=== PATIENT | female | born 1970 | race Caucasian/White ===

== ENCOUNTER 2021-03-17 10:31 | Outpatient (CLI) | payer BC, SELFPAY ==
--- NOTE | ~2021-03-17 | MM_ITS ---
EXAMINATION: MM screening [facility] BI w judy HISTORY: Screening TECHNIQUE: Craniocaudal and mediolateral oblique 3-D tomosynthesis images were obtained and synthetic 2-D images were generated. CAD analysis was submitted and interpreted. COMPARISON: Comparison to multiple prior studies sequentially, with oldest reviewed study dated 01/2011. BREAST PARENCHYMAL COMPOSITION: There are scattered areas of fibroglandular density. FINDINGS: There is no evidence of suspicious mass, calcification, or architectural distortion to sugg est malignancy in either breast. There has been no suspicious interval change. IMPRESSION: 1. No mammographic evidence of malignancy. 2. Recommend routine screening mammography in one year. BI-RADS Category 1: Negative Reviewed, dictated and finalized at location A.
== END 2021-03-17 10:32 | disposition home or self-care (01) ==
LOC: ANHIMG 10:34
PROVIDERS: PCP Family Medicine; Visit Provider Family Medicine
DX: Z12.31 Encounter for screening mammogram for malignant neoplasm of breast (principal)
CPT/HCPCS: 77063; 77067

== ENCOUNTER 2022-01-16 00:42 | Day surgery (SDC) | payer BC, SELFPAY ==
[2022-01-08 14:03] VITALS: BMI 40.0
[2022-01-16 06:33] VITALS: BP 149/92; PULSE 91; RESP 18; TEMP 36.3; O2SAT 99
[2022-01-16] MEDS: LACTATED RINGERS 1,000 ML 150 ML IV CONT (06:46)
--- NOTE | 2022-01-16 06:56 | P.PNAN_ITS ---
Anes - Eval Final PreProcedure Day of Procedure 01/16/22 06:56 Patient weight: morbidly obese Heart: regular rate and rhythm Lungs: clear to auscultation Airway: Mallampati scale class III and class IV Neurological: alert and oriented Last oral intake: >/= 8 hours ASA classification: III Emergent: no Anesthetic plan: proceed Anesthesia type and monitoring: general GIVS Other findings: tMJ popping of jaw Results Review: All pre-operative results and documents have been reviewed as part of the pre- operative evaluation. Informed Consent: The patient's anesthetic plan and its attendant risks and benefits were discussed with the patient/family/POA. Questions were solicited and answers provided to the satisfaction of the patient/family/POA.
--- NOTE | 2022-01-16 06:59 | WPDANESEPPF ---
Anes - Initial Pre Proc Eval Procedure: Operation Date: 01/16/22 07:30 Proposed Procedures p Screening Colonoscopy - Rodríguez Hines MD Date/Time: 01/16/22 06:59 Surgeon: Rodríguez Hines MD Pre Op Diagnosis: neoplasm screening Patient Data Age: 51 Gender: F Height: 1.5 m Weight: 89.7 kg Last Vital Signs Temp 97.4 F L 01/16/22 06:33 Pulse 91 01/16/22 06:33 Resp 18 01/16/22 06:33 BP 149/92 H 01/16/22 06:33 Pulse Ox 99 01/16/22 06:33 O2 Del Method Room Air 01/16/22 06:33 Allergies Allergy/AdvReac Type Severity Reaction Status Date / Time SOLE Inhibitors Allergy Unknown cough Verified 01/08/22 13:47 erythromycin base Allergy Unknown Skin Verified 01/08/22 13:47 Reaction hydrochlorothiazide Allergy Unknown Unknown Verified 01/08/22 13:47 irbesartan Allergy Unknown Unknown Verified 01/08/22 13:47 lisinopril Allergy Unknown Unknown Verified 01/08/22 13:47 metronidazole Allergy Unknown Skin Verified 01/08/22 13:47 Reaction olmesartan Allergy Unknown Unknown Verified 01/08/22 13:47 Penicillins Allergy Unknown Unknown Verified 01/08/22 13:47 Sulfa (Sulfonamide Allergy Unknown Unknown Verified 01/08/22 13:47 Antibiotics) Home Medications Medication Instructions Recorded Confirmed Type docusate sodium 100 mg capsule 300 mg PO DAILY 07/06/19 01/16/22 History (Stool Softener) fluticasone propionate 50 1 spray intranasal DAILY 07/06/19 01/16/22 History mcg/actuation nasal spray,suspension polyethylene glycol 3350 17 17 gm PO DAILY 07/06/19 01/16/22 History gram/dose oral powder (Miralax) triamcinolone acetonide 0.1 % 1 applic topical BID 07/06/19 01/16/22 History topical cream betamethasone, augmented 0.05 % 1 applic topical BID PRN Dry Skin 10/30/19 01/16/22 History topical ointment (Diprolene (augmented)) metoprolol tartrate 25 mg tablet 25 mg PO DAILY 04/27/20 01/16/22 History montelukast 10 mg tablet 10 mg PO DAILY #90 tabs 07/03/21 01/16/22 Rx spironolactone 50 mg tablet See Rx Instructions .Route 07/24/21 01/16/22 Rx .COMPLEX #180 tabs bupropion HCl 300 mg 24 hr tablet, 300 mg PO QAM #90 tabs 08/21/21 01/16/22 Rx extended release (Wellbutrin XL) indapamide 2.5 mg tablet See Rx Instructions .Route 12/25/21 01/16/22 Rx .COMPLEX #90 tabs Patient hx anesthesia problems: none Family hx anesthesia problems: none Results Review: All pre-operative results and documents have been reviewed as part of the pre-operative evaluation. [facility]LY [facility], [facility] Past Medical History Medical History Arthritis of knee, right History of chicken pox IT band syndrome Family History Family History Father Diabetes mellitus Hypertension Malignant neoplasm of prostate Mother Acute myocardial infarction, Onset Age: 45 Heart disease Lung cancer Sibling DRESS syndrome Other Family history of congenital heart disease Family history of malignant neoplasm Social History Social History (Updated 10/25/21 @ 15:28 by JOSELYN Faria) Smoking packs per day: 0.5 Smoking cigarettes per day: 10.0 Years smoked: 30 Smoking pack-years: 15.00 Smoking status: Current every day smoker Tobacco type: cigarettes Smoking end date: 08/26/14 Alcohol intake: never Substance use: never Substance use type: does not use Living arrangements: with family Spiritual care concerns: No Anes - Eval Final PreProcedure Day of Procedure 01/16/22 06:59 Patient weight: morbidly obese Heart: regular rate and rhythm Lungs: clear to auscultation Airway: Mallampati scale class III and class IV Neurological: alert and oriented Last oral intake: >/= 8 hours ASA classification: III Emergent: no Anesthetic plan: proceed Anesthesia type and monitoring: general GIVS Other findings: tMJ-popping Results Review: Jonathan
--- NOTE | 2022-01-16 07:03 | P.PNAN_ITS ---
Anes - Eval Final PreProcedure Day of Procedure 01/16/22 07:03 Patient weight: morbidly obese Heart: regular rate and rhythm Lungs: clear to auscultation Airway: Mallampati scale class III Last oral intake: 6 hours Emergent: no Anesthetic plan: proceed Anesthesia type and monitoring: general GIVS and standard monitoring Results Review: All pre-operative results and documents have been reviewed as part of the pre- operative evaluation. Informed Consent: The patient's anesthetic plan and its attendant risks and benefits were discussed with the patient/family/POA. Questions were solicited and answers provided to the satisfaction of the patient/family/POA.
--- NOTE | 2022-01-16 07:16 | WPDGICN ---
Assessment and Plan Assessment and plan (1) Colon cancer screening: Code(s): Z12.11 - Encounter for screening for malignant neoplasm of colon Status: Acute Assessment and Plan: Patient presents for neoplasia screening. Appears to be at average risk for colon polyps. Further recommendations will be given after endoscopy. (2) Chronic constipation: Code(s): K59.09 - Other constipation Status: Acute Assessment and Plan: High-fiber diet is strongly encouraged. continuing MiraLax on a daily basis as needed is encouraged as well. (3) Morbid obesity: Code(s): E66.01 - Morbid (severe) obesity due to excess calories Status: Acute Assessment and Plan: Calorie restriction increase exercise strongly encouraged. Plan Colonoscopy to be performed today. GI Consult Note Consult date/time: 01/16/22 07:16 HPI: Sybil Mc is a 51 year old female Presents today for screening colonoscopy. Patient reports that her current weight appetite and bowel movements are normal. She denies abdominal pain. Patient has had no bleeding. Family history is noncontributory. Patient does report a lifelong history of constipation for which she takes MiraLax on a daily basis. Review of Systems Review of Systems: Review of systems is noncontributory. [facility] Past Medical History Medical History Arthritis of knee, right History of chicken pox IT band syndrome Family History Family History Father Diabetes mellitus Hypertension Malignant neoplasm of prostate Mother Acute myocardial infarction, Onset Age: 45 Heart disease Lung cancer Sibling DRESS syndrome Other Family history of congenital heart disease Family history of malignant neoplasm Social History Social History (Updated 10/25/21 @ 15:28 by JOSELYN Faria) Smoking packs per day: 0.5 Smoking cigarettes per day: 10.0 Years smoked: 30 Smoking pack-years: 15.00 Smoking status: Current every day smoker Tobacco type: cigarettes Smoking end date: 08/26/14 Alcohol intake: never Substance use: never Substance use type: does not use Living arrangements: with family Spiritual care concerns: No Meds Home Medications and Allergies Home Medications Medication Instructions Recorded Confirmed Type docusate sodium 100 mg capsule 300 mg PO DAILY 07/06/19 01/16/22 History (Stool Softener) fluticasone propionate 50 1 spray intranasal DAILY 07/06/19 01/16/22 History mcg/actuation nasal spray,suspension polyethylene glycol 3350 17 17 gm PO DAILY 07/06/19 01/16/22 History gram/dose oral powder (Miralax) triamcinolone acetonide 0.1 % 1 applic topical BID 07/06/19 01/16/22 History topical cream betamethasone, augmented 0.05 % 1 applic topical BID PRN Dry Skin 10/30/19 01/16/22 History topical ointment (Diprolene (augmented)) metoprolol tartrate 25 mg tablet 25 mg PO DAILY 04/27/20 01/16/22 History montelukast 10 mg tablet 10 mg PO DAILY #90 tabs 07/03/21 01/16/22 Rx spironolactone 50 mg tablet See Rx Instructions .Route 07/24/21 01/16/22 Rx .COMPLEX #180 tabs bupropion HCl 300 mg 24 hr tablet, 300 mg PO QAM #90 tabs 08/21/21 01/16/22 Rx extended release (Wellbutrin XL) indapamide 2.5 mg tablet See Rx Instructions .Route 12/25/21 01/16/22 Rx .COMPLEX #90 tabs Allergies Allergy/AdvReac Type Severity Reaction Status Date / Time SOLE Inhibitors Allergy Unknown cough Verified 01/08/22 13:47 erythromycin base Allergy Unknown Skin Verified 01/08/22 13:47 Reaction hydrochlorothiazide Allergy Unknown Unknown Verified 01/08/22 13:47 irbesartan Allergy Unknown Unknown Verified 01/08/22 13:47 lisinopril Allergy Unknown Unknown Verified 01/08/22 13:47 metronidazole Allergy Unknown Skin Verified 01/08/22 13:47
[2022-01-16 07:48] VITALS: BP 105/59; PULSE 77; RESP 18; O2SAT 99
[2022-01-16 07:58] VITALS: BP 103/71; PULSE 72; RESP 18; O2SAT 99
[2022-01-16 08:08] VITALS: BP 106/70; PULSE 69; RESP 18; O2SAT 99
== END 2022-01-16 08:22 | disposition home or self-care (01) ==
PROVIDERS: PCP Family Medicine; Visit Provider Internal Medicine Gastroenterology
PROC: 0DJD8ZZ Inspection of Lower Intestinal Tract, Via Natural or Artificial Opening Endoscopic (ICD-10-PCS; CPT 45378; principal; 2022-01-16 07:30)
DX: Z12.11 Encounter for screening for malignant neoplasm of colon (principal); K63.5 Polyp of colon; K59.09 Other constipation; E66.9 Obesity, unspecified; Z68.39 Body mass index [BMI] 39.0-39.9, adult; M19.90 Unspecified osteoarthritis, unspecified site; F17.210 Nicotine dependence, cigarettes, uncomplicated
CPT/HCPCS: 45385; 88305; J2704; J7120

== ENCOUNTER → 2023-01-22 10:35 | Outpatient (CLI) | payer BC, SELFPAY ==
--- NOTE | ~2023-01-22 | CT_ITS ---
CT Scan of the Chest without Contrast: Clinical Indication: Lung cancer screening, personal history of nicotine dependence Technique: Contiguous sections were acquired throughout the chest without intravenous contrast. Dose reduction technique was used on this scan by utilizing automated exposure control and iterative recon struction technique. The dose-length product (DLP) was 243.25 mGy-cm. Findings: There is no evidence of any significant mediastinal, hilar or axillary lymphadenopathy. The mediastin al soft tissues appear normal. There is no evidence of pleural or pericardial effusion. 3 mm right middle lobe pulmonary nodule noted (axial image 65).. Images through the upper abdomen reveal no abnormalities. Impression: Lung RADS 2: Benign appearance. 12 month follow-up screening CT advised. Reviewed, dictated and finalized at location . Impression: Lung RADS 2: Benign appearance. 12 month follow-up screening CT advised.
== END ==
PROVIDERS: PCP Family Medicine; Visit Provider Family Medicine
DX: Z12.2 Encounter for screening for malignant neoplasm of respiratory organs (principal); Z87.891 Personal history of nicotine dependence
CPT/HCPCS: 71271

== ENCOUNTER 2023-03-29 08:57 | Outpatient (CLI) | payer OTHER, SELFPAY ==
--- NOTE | ~2023-03-29 | MM_ITS ---
EXAMINATION: MM screening [facility] BI w judy HISTORY: Screening mammogram TECHNIQUE: Craniocaudal and mediolateral oblique 3-D tomosynthesis images were obtained and synthetic 2-D images were generated. CAD analysis was submitted and interpreted. COMPARISON: 03/17/2021, 01/28/2018 bilateral screening mammogram examinations BREAST PARENCHYMAL COMPOSITION: There are scattered areas of fibroglandular density. FINDINGS: There is no evidence of suspicious mass, calcification, or architectural distortion to sugg est malignancy in either breast. There has been no suspicious interval change. IMPRESSION: 1. No mammographic evidence of malignancy. 2. Recommend routine screening mammography in one year. BI-RADS Category 1: Negative Reviewed, dictated and finalized at location A.
== END 2023-03-29 08:58 | disposition home or self-care (01) ==
LOC: ANHIMG 08:58
PROVIDERS: PCP Family Medicine; Visit Provider Family Medicine
DX: Z12.31 Encounter for screening mammogram for malignant neoplasm of breast (principal)
CPT/HCPCS: 77063; 77067

== ENCOUNTER 2025-01-25 12:21 | Outpatient (CLI) | payer OTHER, SELFPAY ==
--- NOTE | ~2025-01-25 | XR_ITS ---
XR knee RT min 4V 01/25/2025 12:47 Indication: Primary osteoarthritis. Procedure: 3 views right knee Comparison: 09/24/2018 Findings: There is been progression of severe tricompartment osteoarthritis of the right knee. No acu te fracture or traumatic malalignment. Small joint effusion. Impression: 1: Progression of severe tricompartment osteoarthritis of the right. Reviewed, dictated and finalized at location A. Impression: 1: Progression of severe tricompartment osteoarthritis of the right.
== END 2025-01-25 12:22 | disposition home or self-care (01) ==
PROVIDERS: PCP Orthopaedic Surgery; Visit Provider Nurse Practitioner Family
DX: M17.11 Unilateral primary osteoarthritis, right knee (principal)
CPT/HCPCS: 73564

== ENCOUNTER 2025-02-04 09:14 | Outpatient (CLI) | payer OTHER, SELFPAY ==
--- OUTSIDE RECORDS SUMMARY | 2025-02-04 09:54 | XMS_ITS | Referral Summary ---
Author Organization [facility] [place] [address] Address [address] [place] [address] Care Team Providers Care Insurance Claim Auditor Name Role Phone Bk Dumont MD Primary Care Provider [phone] [phone] Allergies Active Allergy Reactions Criticality Noted Date Comments Erythromycin Other (See comments),Stomach upset Low 03/02/2020 Severe stomach cramps Lisinopril Cough Low 03/02/2020 Penicillin G Hives Medium 03/02/2020 Penicillins Hives Medium 1969 Sulfa (Sulfonamide Antibiotics) Rash Medium 03/02/2020 Medications spironolactone (ALDACTONE) 50 mg tablet Take 1 tablet (50 mg total) by mouth 2 (two) times a day 02/01/2020 Active montelukast (SINGULAIR) 10 mg tablet Active polyethylene glycol (MIRALAX) 17 gram/dose powder Active indapamide (LOZOL) 2.5 mg tablet 03/20/2016 Active buPROPion XL (WELLBUTRIN XL) 300 mg 24 hr tablet Active fluticasone propionate (FLONASE) 50 mcg/actuation nasal spray Active docusate sodium (COLACE) 100 mg capsule 08/14/2018 Active tacrolimus (PROTOPIC) 0.1 % ointment 02/22/2022 Active clobetasoL (TEMOVATE) 0.05 % ointment 02/22/2022 Active clotrimazole 1 % cream 11/17/2019 Active meloxicam (MOBIC) 15 mg tablet Take 1 tablet (15 mg total) by mouth daily 08/01/2023 Active metoprolol XL (TOPROL-XL) 50 mg extended release tablet 09/19/2023 Acti ve omeprazole (PriLOSEC) 40 mg capsule Take 1 capsule (40 mg total) by mouth daily 11/25/2023 Active Active Problems Problem Noted Date Diagnosed Date Benign hypertensive heart disease without heart failure 02/04/2023 Mixed hyperlipidemia 02/04/2023 Elevated blood sugar 02/04/2023 Obesity (BMI 30-39.9) 11/21/2020 Family history of premature CAD 11/21/2020 Tobacco use 03/05/2020 Left ventricular hypertrophy 03/05/2020 Sinus tachycardia 03/02/2020 Benign essential HTN 03/02/2020 Immunizations Immunization Administration Dates Next Due Pfizer SARS-CoV-2 Monovalent Vaccination (12+ Yrs) PURPLE 11/13/2020 Social History Tobacco Use Types Packs/Day Years Used Date Smoking Tobacco: Light Smoker Cigarettes 0.3 33.4 Started: 08/26/1991 Smokeless Tobacco: Never Tobacco Cessation:Ready to Q uit: Not Asked; Counseling Given: Not Answered Comments:Lung CT scan came back normal. 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 Gender Identity Female 11/18/2019 9:18 AM CDT Sexual Orientation Not on file Last Filed Vital Signs Vital Sign Reading Time Taken Comments Blood Pressure 120/90 01/03/2024 4:05 PM CDT Pulse 86 01/03/2024 4:05 PM CDT Temperature 36.8 C (98.2 F) 01/03/2024 4:05 PM CDT Respiratory Rate 20 01/03/2024 4:05 PM CDT Oxygen Saturation 98% 01/03/2024 4:05 PM CDT Inhaled Oxygen Concentration - - Weight 92.5 kg (204 lb) 01/03/2024 4:05 PM CDT Height 152.4 cm (5') 01/03/2024 4:05 PM CDT Body Mass Index 39.84 01/03/2024 4:05 PM CDT Plan of Treatment Not on file Insurance [facility] CHOICE PLUS CHOICE PLUS Care Teams Insurance Claim Auditor Relationship Specialty Start Date End Date Bk Dumont MD PCP - General Family Medicine 10/30/19
--- OUTSIDE RECORDS SUMMARY | 2025-02-04 09:54 | XMS_ITS | Clinical Summary ---
Author Organization [facility] [place] [address] Address [address] [place] [address] Care Team Providers Care Director Of Exhibits Name Role Phone Bk Dumont MD Primary Care Provider [phone] [phone] Allergies Active Allergy Reactions Criticality Noted Date [...] SARS-CoV-2 Monovalent Vaccination (12+ Yrs) PURPLE 11/13/2020 Surgical History Surgery Date Site/Laterality Comments RECTOCELE REPAIR BLADDER SURGERY 08/14/2018 Medical History Medical History Date Comments Hypertension GERD (gastroesophageal reflux disease) Arthritis Depression Family History Medical History Relation Name Comments Cancer Father Don Alexandro Diabetes Father Don Alexandro Hypertension Father Don Alexandro Prostate cancer Father Don Alexandro Cancer Father's Brother Flynn Mc Alzheimer's disease Father's Sister Delmis Mcguire Heart attack Maternal Grandfather Arthur Collator Operator Alzheimer's disease Maternal Grandmother Barbie Abrahamcher Arthritis Maternal Grandmother Barbieestrellita AbrahamCollator Operator Miscarriages / Stillbirths Maternal Grandmother Barbie Abrahamcher Allergy (severe) Mother Irlanda Mc COPD Mother Irlanda Pierreer Cancer Mother Irlanda Pierreer Early Mother Irlanda Alexandro Heart attack Mother Irlanda Mc Had [place] Age 49, age 57 of COPD and lung cancer Lung cancer Mother Irlanda Mc Cause of , age 57 Miscarriages / Stillbirths Mother Irlanda Mc Rashes / Skin problems Mother Irlanda Alexandro Heart attack Paternal Grandfather Ben Alexandro Heart disease Paternal Grandfather Ben Alexandro Bleeding Disorder Paternal Grandmother Olimpia Alexandro Heart attack Paternal Grandmother Olimpia Alexandro Rashes / Skin problems Paternal Grandmother Olimpia Gram denisha DRESS Syndrome Sister 1 Severe allerg ic reaction; can be familial. 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 Gender Identity Female 11/18/2019 9:18 AM CDT Sexual Orientation Not on file Obstetrics History Last Filed Vital Signs Vital Sign Reading [...] 01/03/2024 4:05 PM CDT Plan of Treatment Health Maintenance Due Date Last Done Comments Breast Cancer Screening-Mammogram 1969 Cervical Cancer Screening 1969 Colon Cancer Screening-Colonoscopy 1969 Depression Screening 1969 Hepatitis C Screening 1969 Hepatitis B Screening 1987 Regular Well Visit/Exam 18-64 1987 Pneumococcal vaccine <65 (1 of 2 - PCV) 02/25/1988 Zoster Vaccine (1 of 2) 2019 Covid-19 Vaccine () 04/26/2024 08/17/2021, 12/11/2020, 11/13/2020 Influenza Vaccine (Season Ended) 2025 DTaP/Tdap/Td Vaccine (2 - Td or Tdap) 03/13/2031 Insurance [facility] Address: [address] [place] [address] [facility] Address: [address] [place] [id number] Care Teams Director Of Exhibits Relationship Specialty Start Date End Date Bk Dumont MD PCP - General Family Medicine 10/30/19
--- OUTSIDE RECORDS SUMMARY | 2025-02-04 09:54 | XMS_ITS | Clinical Summary ---
Author Organization [facility] Address [address] [facility] Attn: Epic Prelude ADT [place] [address] Care Team Providers Care Carpet Cleaning Technician Name Role Phone Unavailable Primary Care Provider Unavailabl e Allergies Active Allergy Reactions Criticality Noted Date Comments Penicillins Rash High 05/19/2023 Sulfa (Sulfonamide Antibiotics) Rash High 04/27 Medications clobetasoL (TEMOVATE) 0.05 % Ointment Apply a thin layer to rash twice daily for 2 weeks. 60 Gram 3 Active tacrolimus (PROTOPIC) 0.1 % Ointment Apply a thin layer to hands twice daily. 60 Gram 5 3 Active clobetasoL (TEMOVATE) 0.05 % Cream Apply cream topically to affected area on hands twice daily for 2 weeks as needed. 60 Gram 3 Active nitrofurantoin (MACROBID) 100 mg capsule Take 1 Capsule (100 mg) by mouth every 12 hours for 7 days. Must administer with food. 14 Capsule 07/02/2023 4:57 PM POOL CLEANER 3 Active ofloxacin (OCUFLOX) 0.3 % solution Administer 1 drop into both eyes 4 (four) times a day for 7 days 5 mL 10/18/2023 6:00 PM POOL CLEANER 4 Active lidocaine (XYLOCAINE) 2 % Solution Gargle and spit 5-10 mL by mouth every 3 (three) hours for 7 days. 100 mL 01/04/2024 9:19 AM CDT 4 Active cephALEXin (KEFLEX) 500 mg capsule Take 1 capsule (500 mg total) by mouth 2 (two) times a day for 7 days 14 Capsule 01/05/2024 11:07 AM CDT 4 Active clotrimazole-b etamethasone (LOTRISONE) 1-0.05 % Cream APPLY TO THE AFFECTED AREA(S) TWICE DAILY. 45 Gram 1 01/14/2024 2:20 PM CDT 4 Active clobetasoL (TEMOVATE) 0.05 % Ointment Apply topically to affected area twice daily as needed 15 Gram 1 03/04/2024 9:36 AM CDT 4 Active mupirocin (BACTROBAN) 2 % Ointment Apply topically to affected area twice daily, use with clobetasol. 22 Gram 1 03/04/2024 9:36 AM CDT 4 Active terbinafine HCL (AntifungaL, terbinafine,) 1 % Cream Mix with Triamcinolone cream and apply to left thigh twice daily. Put desitin on top. 30 Gram 1 4 Active triamcinolone acetonide (KENALOG) 0.1 % Cream Apply to affected areas on left thigh twice daily. avoid application on face. Can mix with terbinafine cream and apply. And put desitin on top. 15 Gram 1 03/23/2024 10:28 AM CDT 4 Active spironolactone (ALDACTONE) 50 mg tablet Take 1 Tablet (50 mg) by mouth 2 times daily. 180 Tablet 1 08/16/2024 10:26 AM POOL CLEANER 4 Active linaCLOtide (Linzess) 145 mcg capsule Take 1 Capsule (145 mcg) by mouth daily. 30 Capsule 11 05/23/2024 12:44 PM CDT 4 Active tirzepatide, weight loss, (Zepbound) 2.5 mg/0.5 mL Pen Injector Inject 2.5 mg by subcutaneous injection every 7 days. 2 mL 2 4 Active meloxicam (MOBIC) 15 mg tablet Take 1 Tablet (15 mg) by mouth daily. 90 Tablet 3 01/09/2025 9:58 AM CDT 4 Active metoprolol succinate (TOPROL XL) 50 mg Extended Release 24 hour tablet Take 1 tablet (50 mg) by mouth twice a day 180 Tablet 3 01/09/2025 9:58 AM CDT 5 Active fezolinetant (Veozah) 45 mg tablet Take 1 tablet (45 mg) by mouth daily 90 Tablet 4 5 Active omeprazole (PriLOSEC) 40 mg Capsule, Delayed Release(E.C.) Take 1 Capsule (40 mg) by mouth daily. 30 Capsule 5 01/09/2025 9:58 AM CDT 5 Active indapamide (LOZOL) 2.5 mg tablet Take 1 Tablet (2.5 mg) by mouth daily. 90 Tablet 1 01/09/2025 9:58 AM CDT 5 Active montelukast (SINGULAIR) 10 mg tablet Take 1 Tablet (10 mg) by mouth daily. 90 Tablet 1 01/09/2025 9:58 AM CDT 5 Active buPROPion HCL (WELLBUTRIN XL) 300 mg Extended Release 24 hour tablet Take 1 Tablet (300 mg) by mouth daily in the morning. 90 Tablet 1 01/09/2025 9:58 AM CDT 5 Active Encounters Date Type Department Care Team Description 12/29/2024 External Device Data [facility] ABSTRACTION Provider, Abstract from Last 3 Months Social History Tobacco Use Types Packs/Day Years Used Date Smoking Tobacco: Never Assessed Comments Unknown Sex and Gender Information Value Date Recorded Sex Assigned at Not on file Legal Sex Female 6:05 PM POOL CLEANER Gender Identity Not on file Sexual Orientation Not on file Plan of Treatment Health Maintenance Due Date Last Done Comments DTAP/TDAP/TD VACCINES (1 - Tdap) 02/25/1988 HEPATITIS B VACCINES (1 of 3 - 19+ 3-dose series) 09/1987 HPV/Cotest (21-29) 1990 CERVICAL CANCER SCREENING 1999 HPV/Cotest (30-65) 1999 PAP SMEAR 1999 BREAST CANCER SCREENING 2009 COLORECTAL SCREENING 2014 Colorectal Cancer Screening 2014 FIT-DNA Q 3 years 2014 FIT/FOBT Q 1 year 2014 Flex Sig/CT Colonography Q 5 years 2014 ZOSTER VACCINE (1 of 2) 2019 INFLUENZA VACCINE (#1) 2024 Insurance RX [employer] Member Subscriber Plan / Payer (Ef fective 2023-Present) Name:Sybil Mc Relation to Subscriber:Self Name:Sybil Mc Subscriber ID:Not on file Payer ID:Not on file Group ID:[id number] Type:RX Commercial Address: [address] [employer]) [facility] [employer]
[2025-02-23 15:21] VITALS: BMI 41.2
--- NOTE | 2025-02-23 15:21 | P.SLEEP_ITS ---
Sleep Study - Home Unattended Date of Study: 02/04/25 Ordering Provider: Bk Dumont MD Interpreting Provider: Suzi Love, DO Home Sleep Study Type: Watch PAT Height: 1.5 m Weight: 92.533 kg Body Mass Index: 41.2 Neck Circumference (inches): 15 [place]: 3 Reason for Sleep Study Trouble falling asleep Sleep History The patient is a 54-year-old female who had a sleep study ordered by her primary care physician for evaluation of sleep apnea. The patient admits to having difficulty falling asleep. She denies snoring loudly. She denies interruptions in breathing while asleep. She denies choking or gasping at night. She does have trouble breathing on her back. She denies morning headaches. She does have a dry or sore mouth/throat in the morning. She does have nocturnal heartburn. She denies nocturia. She denies having difficulty staying asleep. She denies having difficulty returning to sleep if she wakes up throughout the night. She denies any hypnotic or sedative use. She denies feeling anxious about sleep. She does feel tired or sleepy during the day. She does feel tired in the morning. She denies having the urge to fall asleep during the day. She denies feeling drowsy while driving. She denies sleep paralysis, cataplexy, and hypnagogic/hypnopompic hallucinations. She denies clenching or grinding her teeth. She denies kicking or jerking her legs excessively. She denies having a restless feeling in her legs. She goes to bed at 10 p.m. on workdays and at 1 a.m. on her days off. It takes her 30 minutes to fall asleep on workdays and 15 minutes on her days off. She gets 6 hours and 15 minutes of sleep on workdays and 7 hours and 45 minutes of sleep on her days off. Her sleep is much more restorative on days off. She denies taking any planned naps. She denies dream enactment behavior. She denies sleepwalking. She consumes 3 to 4 cups of a caffeinated beverage per day. She smokes less than 5 cigarettes per day. She denies alcohol use. She denies exercising on a regular basis. PMFSH Past Medical History Medical History History of chicken pox IT band syndrome Arthritis of knee, right Family History Family History Father Diabetes mellitus Hypertension Malignant neoplasm of prostate Bladder cancer Mother Acute myocardial infarction, Onset Age: 45 Heart disease Lung cancer Sibling DRESS syndrome Other Family history of congenital heart disease Family history of malignant neoplasm Social History Social History Social History: caffeine-coffee daily, soda Smoking packs per day: 0.5 Smoking cigarettes per day: 10.0 Years smoked: 30 Smoking pack-years: 15.00 Smoking status: Current every day smoker Tobacco type: cigarettes Smoking end date: 08/26/14 Alcohol intake: never Substance use: never Substance use type: does not use Lack of Transportation: No Lack of Food: Never True Current Housing: I Have Housing Concerned About Future Housing: No Difficulty Paying Gas/Electric Bills: No Difficulty Paying for Meds: No Currently Unemployed: No Education: Bachelor's Degree Difficulty w/ Childcare or Family Care: No Living arrangements: with family Spiritual care concerns: No Medications Home Medications ?Medication ?Instructions ?Recorded ?Confirmed ?Type docusate sodium 100 mg capsule 300 mg PO DAILY 07/06/19 02/03/25 History (Stool Softener) fluticasone propionate 50 1 spray intranasal DAILY 07/06/19 02/03/25 History mcg/actuation nasal spray,suspension polyethylene glycol 3350 17 17 gm PO DAILY 07/06/19 02/03/25 History gram/dose oral powder (Miralax) clobetasol 0.05 % topical ointment 1 applic topical DAILY 01/25/22 02/03/25 History tacrolimus 0.1 % topical ointment 1 applic topical BID 01/25/22 02/03/25 History clotrimazole-betamethasone 1 1 applic topical BID #45 grams 01/13/24 02/03/25 Rx %-0.05 % topical cream linaclotide 145 mcg capsule 145 mcg PO DAILY #30 caps 05/21/24 02/03/25 Rx (Linzess) mupirocin 2 % topical ointment topical 05/21/24 02/03/25 History meloxicam 15 mg tablet See Rx Instructions .Route 08/17/24 02/03/25 Rx .COMPLEX #90 tabs metoprolol succinate 50 mg 50 mg PO BID #180 tabs 08/28/24 02/03/25 Rx tablet,extended release 24 hr omeprazole 40 mg capsule,delayed 40 mg PO DAILY #30 caps 09/10/24 02/03/25 Rx release bupropion HCl 300 mg 24 hr tablet, See Rx Instructions .Route 12/09/24 02/03/25 Rx extended release .COMPLEX #90 tabs indapamide 2.5 mg tablet See Rx Instructions .Route 12/09/24 02/03/25 Rx .COMPLEX #90 tabs montelukast 10 mg tablet See Rx Instructions .Route 12/09/24 02/03/25 Rx .COMPLEX #90 tabs Sleep Procedure The sleep study was completed using HellotravelT a technically adequate device with seven channels: peripheral arterial tone, actigraphy, body position, snore, respiratory movement, pulse oximetry, sleep staging, and heart rate. Prior to using the device, the patient received verbal and written instructions for its application and was provided with the help desk phone number for additional telephonic instruction with 24-hour availability of qualified personnel to answer questions. The study was scored using CMS guidelines. Sleep Architecture The total recording time is 7 hrs, 0 min. The total sleep time is 6 hrs, 9 min. Sleep latency is 17 minutes. REM latency is 73 minutes. The patient had 10 episodes of waking. Sleep architecture shows 23.2% deep sleep, 52.7% light sleep, and (as % Total Sleep Time) showed NREM (Light 52.7%; Deep 23.2%), and a 24.2% stage REM. The patient spent 100.0% of total sleep time in the supine position. Sleep efficiency was 87.86. Respiratory Analysis The overall AHI (pAHI 4%:) is 7.6. The overall AHI (pAHI 3%:) is 21.6. The central AHI is 0.5. The AHI was 13.0 in NREM and 48.2 in REM sleep. The AHI was 21.6 in Supine and N/A in Non-supine sleep. Percent of Andrew Tinoco respirations is 0.0. Oximetry Data The oxygen desaturation index (THERESE 4%:) is 8.1. The mean saturation is 94%, and the lowest saturation is 83%. Time spent with saturation < 88% is 1.1 minutes. Snoring Profile Snoring average intensity is 40 dB. The patient snored above 45 decibels for 7.1 minutes, 1.9% of sleep time. Cardiac Profile The average pulse rate is 68 beats per minutes. The lowest pulse rate is 60 bpm. The highest pulse rate reported is 91 bpm. Atrial fibrillation was not detected. Premature beats occur <0.1 per minute. Assessment and Plan Assessment and Plan (1) MASON (obstructive sleep apnea): Code(s): G47.33 - Obstructive sleep apnea (adult) (pediatric) Status: Acute Assessment and Plan: The patient had an overall AHI of 7.6 with desaturation down to 83%. This is consistent with mild sleep apnea. Due to the patient's cardiac arrhythmias, she qualifies for treatment. I recommend that the patient be prescribed AutoPAP 5-15 cm H2O, CPAP mask/filters/tubing and heated humidity. A mandibular advancement device is also an acceptable treatment option. This should be used with all episodes of sleep.? Compliance should be reviewed within 31-90 days of starting therapy for usage greater than 4 hours per night greater than 70% of the nights. The patient should be asked about symptoms such as?excessive daytime sleepiness, quality of sleep, decreased nocturia, increased?mental functioning such as memory, mood, and concentration. Data The data obtained during this sleep study is adequate for interpretation. Certification This sleep study has been reviewed by a board certified sleep medicine physician.
== END 2025-02-05 12:31 | disposition home or self-care (01) ==
LOC: ANHCSM 09:20
PROVIDERS: PCP Family Medicine; Visit Provider Family Medicine
DX: G47.33 Obstructive sleep apnea (adult) (pediatric) (principal)
CPT/HCPCS: 95800

== ENCOUNTER 2025-07-21 15:16 | Outpatient (CLI) | payer OTHER, SELFPAY ==
--- NOTE | ~2025-07-21 | MM_ITS ---
EXAMINATION: MM screening inez BI w judy HISTORY: Screening. TECHNIQUE: Craniocaudal and mediolateral oblique 3-D tomosynthesis images were obtained and synthetic 2-D images were generated. CAD analysis was submitted and interpreted. COMPARISON: 2022 and 2020 BREAST PARENCHYMAL COMPOSITION: Not Dense: There are scattered areas of fibroglandular tissue. FINDINGS: No suspicious masses are seen. There are no suspicious calcifications. No unexplained architectural distortion is seen. There are no skin or nipple abnormalities identified. There is no adenopathy seen on the images submitted. IMPRESSION: No mammographic evidence to suggest malignancy is seen. The patient may return to screening mammography as per ACR guidelines. BI-RADS: 1 - Negative. Reviewed, dictated and finalized at location B. TICAL NURSING TEACHER
--- OUTSIDE RECORDS SUMMARY | 2025-07-21 15:19 | XMS_ITS | Clinical Summary ---
Author Organization [facility] Address [address] Attn: Epic Prelude ADT [place] [address] Care Team Providers Care Chief School Finance Officer Name Role Phone Unavailable Primary Care Provider [...] with food. 14 Capsule 07/02/2023 4:57 PM LOCAL DRIVER 3 Active ofloxacin (OCUFLOX) 0.3 % solution Administer 1 drop into both eyes 4 (four) times a day for 7 days 5 mL 10/18/2023 6:00 PM LOCAL DRIVER 4 Active lidocaine (XYLOCAINE) 2 % Solution [...] daily. 180 Tablet 1 08/16/2024 10:26 AM LOCAL DRIVER 4 Active linaCLOtide (Linzess) 145 mcg capsule Take 1 Capsule (145 mcg) by mouth daily. 30 Capsule 11 05/23/2024 12:44 PM CDT 4 Active tirzepatide, weight loss, (Zepbound) 2.5 mg/0.5 mL Pen Injector Inject 2.5 mg by subcutaneous injection every 7 days. 2 mL 2 4 Active meloxicam (MOBIC) 15 mg tablet Take 1 Tablet (15 mg) by mouth daily. 90 Tablet 3 07/05/2025 3:36 PM LOCAL DRIVER 4 Active metoprolol succinate (TOPROL XL) 50 mg Extended Release 24 hour tablet Take 1 tablet (50 mg) by mouth twice a day 180 Tablet 3 07/05/2025 3:36 PM LOCAL DRIVER 5 Active fezolinetant (Veozah) 45 mg tablet Take 1 tablet (45 mg) by mouth daily 90 Tablet 4 5 Active omeprazole (PriLOSEC) 40 mg Capsule, Delayed Release(E.C.) Take 1 Capsule (40 mg) by mouth daily. 30 Capsule 5 07/05/2025 3:36 PM LOCAL DRIVER 5 Active clobetasoL (TEMOVATE) 0.05 % Ointment Apply two times daily as needed for itchy, scaly skin on hands. 60 Gram 5 03/21/2025 12:38 PM CDT 5 Active tacrolimus (PROTOPIC) 0.1 % Ointment Apply to affected area(s) on hands two times daily as needed. 60 Gram 5 03/21/2025 12:38 PM CDT 5 Active buPROPion HCL (WELLBUTRIN XL) 300 mg Extended Release 24 hour tablet Take 1 Tablet (300 mg) by mouth daily in the morning. 90 Tablet 1 07/05/2025 3:36 PM LOCAL DRIVER 5 Active indapamide (LOZOL) 2.5 mg tablet Take 1 Tablet (2.5 mg) by mouth daily. 90 Tablet 1 07/05/2025 3:36 PM LOCAL DRIVER 5 Active montelukast (SINGULAIR) 10 mg tablet Take 1 Tablet (10 mg) by mouth daily. 90 Tablet 1 07/05/2025 3:36 PM LOCAL DRIVER 5 Active tirzepatide, weight loss, (Zepbound) 2.5 mg/0.5 mL Pen Injector Inject 0.5 mL (2.5 mg) by subcutaneous injection every 7 days. 6 mL 5 Active semaglutide, weight loss, (Wegovy) 0.25 mg/0.5 mL Pen Injector Inject 0.5 mL (0.25 mg) by subcutaneous injection every 7 days. 6 mL 5 Active Encounters Date Type Department Care Team Description 06/22/2025 External Device Data [facility] ABSTRACTION Provider, Abstract from Last 3 Months Social History Tobacco Use Types Packs/Day Years Used Date Smoking Tobacco: Never Assessed Comments Unknown Sex and Gender Information Value Date Recorded Sex Assigned at Not on file Legal Sex Female 6:05 PM LOCAL DRIVER Gender Identity Not on file Sexual Orientation [...] (1 of 2) 2019 INFLUENZA VACCINE (#1) 2025 Insurance [employer] Member Subscriber Plan / Payer (Ef fective 2023-Present) Name:Sybil Mc Relation to Subscriber:Self Name:Sybil Mc Subscriber ID:Not on file Payer ID:Not on file Group ID:[id number] Type:RX Commercial Address: [place] [employer] (INTERNAL) [facility] [employer]
--- OUTSIDE RECORDS SUMMARY | 2025-07-21 15:19 | XMS_ITS | Clinical Summary ---
Author [place] [facility] [place] [address] Address [address] [place] [address] Care Team Providers Care Machine Candle Molder Name Role Phone Bk Dumont MD Primary Care Provider [phone] Allergies Active Allergy Reactions Criticality Noted Date [...] Delmis Mcguire Heart attack Maternal Grandfather Arthur Operative Supervisor Alzheimer's disease Maternal Grandmother Barbie Abrahamcher Arthritis Maternal Grandmother Barbieestrellita AbrahamOperative Supervisor Miscarriages / Stillbirths Maternal Grandmother Barbie Abrahamcher Allergy (severe) Mother Irlanda Mc COPD Mother Irlanda Pierreer Cancer Mother Irlanda Pierreer Early Mother Irlanda Alexandro Heart attack Mother Irlanda Mc Had MA Age 49, age 57 of COPD and [...] Date Smoking Tobacco: Light Smoker Cigarettes 0.3 33.9 Started: 08/26/1991 Smokeless Tobacco: Never Tobacco Cessation:Ready [...] on file 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
== END 2025-07-21 15:17 | disposition home or self-care (01) ==
LOC: ANHFOHIMG 15:16
PROVIDERS: PCP Family Medicine; Visit Provider Family Medicine
DX: Z12.31 Encounter for screening mammogram for malignant neoplasm of breast (principal)
CPT/HCPCS: 77063; 77067